=== PATIENT | male | born 1945 | race Caucasian/White ===

== ENCOUNTER 2017-10-18 07:17 | Day surgery (SDC) | payer OTHER ==
--- NOTE | 2017-10-17 08:52 | HP ---
CHIEF COMPLAINT: Back pain. HISTORY OF PRESENT ILLNESS: This is a 71-year-old male who reports to the office for evaluation of l ow back pain and left leg pain. The patient reports that it has been progressively getting worse ove r the last year, he denies any known injury. The patient states that he cannot walk more than a bloc k before he needs to bend over and take his feet. Sitting relieves the pain. The patient states familia t the pain is worse in his legs, hips, anterior and posterior thigh, and anterior reyna. He also has numbness in his left foot. The patient denies PT or injections. His primary care physician has give n him medications and only one that he notices gives some relief that is diclofenac. The patient sta saran his pain is a 7-11/22. REVIEW OF SYSTEMS: Constitutional: Denies fever or chills. ENT: Denies change in hearing or visio n. Cardiovascular: Denies chest pain, shortness of breath or diaphoresis. Pulmonary: Denies shortness of breath, cough, hemoptysis. Gastroenterology: Denies abdominal pain, nausea, vomiting, diarrhea, change in stool formation in consistency. Genitourinary: Denies trouble with urination, bloody urine, reports frequency of urination. Skin: Denies skin rash, bruising, bleeding, skin masses. Musculoskeletal: As per HPI. Neurologic: As pe r HPI. PAST MEDICAL HISTORY: Hypertension, back pain. PAST SURGICAL HISTORY: Appendectomy at 11 years old and bladder surgery at 23 years old. HOSPITALIZATIONS: For his bladder surgery. FAMILY HISTORY: Father and mother are both . SOCIAL HISTORY: The patient is a former smoker. He quit in 1981. At that time, he smoked a pack a day. He reports occasional alcohol use and daily caffeine intake, 1-2 cups coffee. Patient is retir ed and he is . MEDICATIONS: Duloxetine HCL, diclofenac, metoprolol succinate, metoprolol tartrate, gabapentin, Tram adol HCL, Tylenol, CoQ10, turmeric. ALLERGIES: No known drug allergies. PHYSICAL EXAMINATION: CONSTITUTIONAL: The patient is well-appearing, well-nourished, and alert. NEUROLOGIC: The patient is oriented to time, place and person. Normal attention span and concentrat ion. Speech is spontaneous and fluent, comprehension intact. Content appropriate. Normal fund of k nowledge. Cranial nerves: Pupils equal, round, reactive to light. Extraocular movements are intact . Hearing is intact. Cranial nerves II through XII are intact. Motor: Muscle strength normal in l ower extremities. Muscle tone and bulk normal in lower extremities, 5/5 bilateral strength in iliops oas, knee extension, knee flexion, dorsiflexion, plantar flexion, extension hallucis longus, left L2 and L4 radiculopathy, negative SLR bilateral, rotation limited in bilateral hips, left greater than r ight pain. Deep tendon reflexes 2+ patellar bilaterally, 2+ ankles bilaterally. Sensory: Anterior tibia more sensitive on left. Gait and station, sit to stand is slow, left leg limp and forward flex ion at the hips. RESPIRATORY: Normal work of breathing on room air. SKIN: No rashes or lesions on exposed skin. PSYCHIATRIC: Normal mood and affect. IMAGING: L1-L2 moderate spinal stenosis, L2-L3 severe spinal stenosis, L4-L5 left lateral recess noam nosis. ASSESSMENT: Spinal stenosis, lumbar region with neurogenic claudication, lumbago with sciatica left- side, lumbar radiculopathy. PLAN: Dr. Escobedo has offered a laminectomy at L2-L3 with facetectomy at L4-L5. Risks and complic ations have been discussed with patient. The risks have been discussed include but are not limited t o infection, CSF leak, nerve damage, weakness, cauda equina injury, incontinence, arachnoiditis, para lysis, ventilator dependence, wheelchair dependence, loss of vision, cardiopulmonary complications o f anesthesia or , long-term complications have been discussed, but are not limited to spinal ins tability and future surgery. Patient understands the risks and is willing to proceed with surgery.
[2017-10-17 09:41] VITALS: BMI 31.1
[2017-10-18] MEDS ORDERED: CEFAZOLIN/Water 2 GM/20 ML SYRINGE ONE (07:51)
[2017-10-18 08:00] LABS: Hemoglobin 13.6 g/dL (14.0-18.0); Mean Corpuscular HGB CONC 34.5 g/dL (32.0-36.0); Mean Corpuscular Hemoglobin 32.9 pg (27.0-31.0); Mean Corpuscular Volume 95.5 fL (78.0-98.0); Mean Platelet Volume 6.5 fL (7.4-10.4); Platelet Count 409 thou/uL (130-400); RBC Distribution Width 12.4 % (11.5-14.5); Red Blood Cell (RBC) Count 4.13 mill/uL (4.70-6.10); White Blood Cell (WBC) Count 8.9 thou/uL (4.8-10.8)
[2017-10-18 08:12] LABS: PTT 26.4 SEC (22.9-36.1); Prothrombin Time 13.7 SEC (12.0-14.7)
[2017-10-18] MEDS ORDERED: Bupivacaine HCl 0.5%/Epinephrine 1:200,000/PF 30 ml Vial ONE (10:18)
[2017-10-18] MEDS ORDERED: Thrombin 5000 UNITS/5 ML VIAL ONE (10:18)
[2017-10-18] MEDS ORDERED: Sodium Chloride 0.9% 10 ML ONE (10:18)
[2017-10-18] MEDS ORDERED: Fentanyl 100 MCG/2 ML VIAL ONE ×4 (11:16→15:26)
[2017-10-18] MEDS ORDERED: Midazolam HCl 2 mg/2 ml Vial ONE (14:21)
[2017-10-18] MEDS ORDERED: Tamsulosin HCl 0.4 MG CAP ONE (15:54)
--- NOTE | 2017-10-18 15:56 | OP ---
DATE OF PROCEDURE: 10/18/2017 SURGEON: Dorene Escobedo M.D. [employer] RENTAL CLERK: DAVID Urias. PREOPERATIVE INDICATION: Treat pain, prevent neurological deterioration. PREOPERATIVE DIAGNOSES: Multilevel lumbar stenosis with neurogenic claudication, right-sided L4-L5 l ateral recess stenosis with radiculopathy. POSTOPERATIVE DIAGNOSES: Multilevel lumbar stenosis with neurogenic claudication, right-sided L4-L5 lateral recess stenosis with radiculopathy. OPERATIVE PROCEDURE: Decompressive laminectomy, medial facetectomy, foraminotomy L1-L2, L2-L3, left- sided L4-L5 hemilaminectomy, medial facetectomy, foraminotomy. PREOPERATIVE MEDICATION: Ancef 2 grams IV. DRAIN NUMBER: Zero. DRAIN TYPE: None. OPERATIVE DICTATION: The patient was brought to the operating room. General endotracheal anesthesia was induced. The patient was positioned prone on the operating table with his chest and hips suppor priti by gel-filled chest rolls. A lateral fluoro radiograph was used to plan our incision. The lumba r skin was sterilely prepped and draped. We opened our incision with a 10 blade knife and controlled bleeding with bipolar and monopolar cautery. We used monopolar cautery to dissect through subcutane ous tissues to thoracodorsal fascia. We incised the fascia in the midline and reflected the paraspin al muscles off the spinous process and lamina of L1, L2, L3 as well as L4 and L5. We placed self-ret aining retractors. We took a lateral fluoro radiograph to confirm the levels upon which we were oper ating. We then used Adson, Leksell and Kerrison rongeurs to fashion a laminectomy from L1-L3. We wi dened our laminectomy defect until we were flush with the L1, L2 and L3 pedicles. We performed jamel inotomies over the L1, L2 and L3 nerve roots and made sure a ball probe could pass through the latera l recess and out the foramen without impingement. We irrigated copiously with bacitracin irrigation and waxed the bone edges. We turned our attention to L4-L5. Here, we performed a partial hemilaminectomy on the left at L4-L5. We widened our hemilaminectomy un til we encountered a very large facet joint with overgrown bone spurs crowding the lateral recess. W e placed Gelfoam over the dura and used a high-speed drill to thin out the medial facet joint. With Kerrison rongeurs, we completed our medial facetectomy, performed a foraminotomy over the exiting L5 nerve root. We passed a ball probe through the lateral recess and out the foramen with the L5 root. In a similar fashion, we ensured the L4 nerve root was well decompressed. We irrigated copiously wi th bacitracin irrigation. We noticed a small perfectly round bleb in the dura at the L4-L5 interspac e on the left side. This seemed to be a needle injection site. There was arachnoid protruding out, but no significant CSF leak. We reinforced this with a small pledget of fat and DuraSeal tissue seal ant. This was after copious irrigation of the wound. We closed the wound in anatomic layers and we applied a sterile dressing. This was a clean case and no contamination.
[2017-10-18] MEDS ORDERED: HYDROcodone/Acetaminophen 5/325 mg Tablet ONE (16:31)
--- NOTE | 2017-10-18 17:08 | EKG ---
Test Reason : PREOP Blood Pressure : / mmHG Vent. Rate : 069 BPM Atrial Rate : 069 BPM P-R Int : 152 ms QRS Dur : 094 ms QT Int : 428 ms P-R-T Axes : 068 012 026 degrees QTc Int : 458 ms Normal sinus rhythm Increased R/S ratio in V1, consider early transition or posterior infarct Abnormal ECG No previous ECGs available Confirmed by DR. Yani SHANKS ([id number]) on 10/18/2017 5:07:44 PM Referred By: JERALD Confirmed By:DR. Yani SHANKS
== END 2017-10-18 16:50 | disposition home or self-care (01) ==
LOC: SDC 07:17
PROVIDERS: ATTEND Neurological Surgery
PROC: 01NB0ZZ Release Lumbar Nerve, Open Approach (ICD-10-PCS; principal; 2017-10-18)
DX: M48.062 Spinal stenosis, lumbar region with neurogenic claudication (principal); M54.16 Radiculopathy, lumbar region; I10 Essential (primary) hypertension; Z87.891 Personal history of nicotine dependence
CPT/HCPCS: 76001; 85027; 85610; 85730; 93005; 93010; 96374; A4216; J0131; J0670; J2250; J3010; J3370; J3490